=== PATIENT | female | born 1955 | race Caucasian/White ===

== ENCOUNTER 2017-07-31 19:02 | Emergency (ER) | payer MEDICAID ==
[~2017-07-31] VITALS: Ht 154.9 cm; Wt 67.5 kg
[~2017-07-31 19:02] MED LIST: ACYC200O5 PO; CYCL-319 PO; NAPR-260 PO; PRED20TA PO
[2017-07-31 19:43] VITALS: Ht 154.9 cm; Wt 67.5 kg
[2017-07-31 20:50] LABS: ADD UMIC NO; UR ASCORBIC ACID 40 mg/dL (NEGATIVE); UR BACTERIA FEW /HPF (NONE SEEN); UR BILIRUBIN (Dip) NEGATIVE (NEGATIVE); UR BLOOD (Dip) NEGATIVE (NEGATIVE); UR CLARITY SLIGHTLY CLOUDY (CLEAR); UR COLOR YELLOW (YELLOW); UR GLUCOSE (Dip) NEGATIVE (NEGATIVE); UR KETONES (Dip) NEGATIVE (NEGATIVE); UR LEUKOCYTE ESTERASE (Dip) NEGATIVE Leu/ul (NEGATIVE); UR MUCUS FEW /HPF (NONE SEEN); UR NITRITE (Dip) NEGATIVE (NEGATIVE); UR RBC 1 /HPF (0-5); UR SPECIFIC GRAVITY (Dip) 1.032 (1.003-1.030); UR TOTAL PROTEIN (Dip) NEGATIVE (NEGATIVE); UR UROBILINOGEN (Dip) NEGATIVE (NEGATIVE)
--- NOTE | 2017-07-31 21:17 | RADRPT ---
PROCEDURE: Pelvic ultrasound. CLINICAL INDICATION: Pelvic pain, history of hysterectomy. TECHNIQUE: Rod scale, color doppler, spectral doppler ultrasound of the pelvis was performed with transabdominal transducers. COMPARISON: No prior studies are available for comparison. FINDINGS: Uterus: Surgically absent. Ovaries: Not visualized by the nurse's aides teacher. IMPRESSION: No evidence of mass or fluid collections seen within the pelvis. RPTAT: AADD .Adama Castro MD, MD Date Time Electronically viewed and signed by .Adama Castro MD, MD on 07/31/2017 21:17 .B/
[2017-07-31] MEDS ORDERED: IBUP400T22 PO (21:27)
--- NOTE | 2017-07-31 21:34 | ERD ---
ER Documentation Chief Complaint Date/Time DATE: 07/31/17 TIME: 21:29 Chief Complaint L groin pain radiating to L thigh&L butt on/off x a yr, worst today HPI 31-year-old female patient with no significant past medical history presents to the ED complaining of left buttocks and left groin pain that radiates down her leg that has been intermittent for the past year but worse in the last month. Reports that she has had a history of fibroids in 2004 and had a hysterectomy during that year. Denies any chest pain, shortness of breath, abdominal pain, nausea, vomiting, diarrhea, wheezing. Denies any dysuria, urgency, frequency, hematuria, vaginal bleeding, vaginal discharge. Reports that she has been taking Aleve with slight relief of her symptoms. ROS All systems reviewed and are negative except as per history of present illness. Medications Home Meds Active Scripts Ibuprofen* (Motrin*) 400 Mg Tab, 400 MG PO Q6, #30 TAB Prov:CESAR NGUYEN PA-C 07/31/17 Cyclobenzaprine Hcl* (Cyclobenzaprine Hcl*) 10 Mg Tablet, 10 MG PO TID, #15 TAB Prov:KWAME NICE PA-C 06/05/16 Naproxen* (Naprosyn*) 500 Mg Tablet, 500 MG PO BID Y for PAIN AND/OR INFLAMMATION, #30 TAB Prov:KWAME NICE PA-C 06/05/16 Prednisone* (Prednisone*) 20 Mg Tab, 10 MG PO DAILY Y for bid, #14 TAB Prov:JEFFRY MOTTA MD 05/09/15 Prednisone* (Prednisone*) 20 Mg Tab, 20 MG PO DAILY Y for bid for 6 Days, TAB Prov:JEFFRY MOTTA MD 05/09/15 Acyclovir (Acyclovir) 200 Mg/5 Ml Oral.susp, 200 MG PO QID for 10 Days, ML Prov:JEFFRY MOTTA MD 05/09/15 Allergies Allergies: Coded Allergies: No Known Allergy (Unverified , 05/09/15) PMhx/Soc History of Surgery: Yes (HYSTERECTOMY) Anesthesia Reaction: No Hx Neurological Disorder: No Hx Respiratory Disorders: No Hx Cardiac Disorders: No Hx Psychiatric Problems: No Hx Miscellaneous Medical Probl: No Hx Alcohol Use: No Hx Substance Use: No Hx Tobacco Use: No Smoking Status: Never smoker Physical Exam Vitals Vital Signs Date Time Temp Pulse Resp B/P Pulse Ox O2 Delivery O2 Flow Rate FiO2 07/31/17 21:43 97.4 76 18 124/73 99 Room Air 07/31/17 19:43 99.0 84 18 124/82 97 Physical Exam Const: [id number], well-nourished. In no acute distress. Head: Atraumatic, normocephalic Eyes: Normal Conjunctiva without injection. No purulent discharge. ENT: Normal external ear, nose. Moist oropharynx without tonsillar exudates. Non -erythematous pharynx. Uvula midline. No drooling. No trismus. Neck: No cervical midline tenderness. Full range of motion. No meningismus. No cervical lymphadenopathy. No JVD. Resp: Clear to auscultation bilaterally. No wheezing, rhonchi, rales, or crackles. No accessory muscle use. No retractions. Cardio: Regular rate and rhythm. No murmurs, rubs or gallops. Abd: Soft, nontender, non distended. Normal bowel sounds. No palpable masses. No rebound tenderness. No guarding. Negative McBurney's point. Negative psoas sign. Negative obturator sign. : Normal external genitalia. No hernias noted. No vaginal discharge. No vaginal bleeding. Skin: No petechiae or rashes Back: No midline tenderness. No CVA tenderness.Slightly positive straight leg test of the left lower extremity. Ext: No cyanosis, or edema. Neur: Awake and alert. Normal gait. Normal coordination. Psych: Normal Mood and Affect Results 24 hrs Laboratory Tests Test 07/31/17 20:26 Urine Color YELLOW Urine Clarity SLIGHTLY CLOUDY Urine pH 5.0 Urine Specific [place] 1.032 Urine Ketones NEGATIVEmg/dL Urine Nitrite NEGATIVEmg/dL Urine Bilirubin NEGATIVEmg/dL Urine Urobilinogen NEGATIVEmg/dL Urine Leukocyte Esterase NEGATIVELeu/ul Urine Microscopic RBC 1/HPF Urine Microscopic WBC 2/HPF Urine Bacteria FEW/HPF Urine Mucus FEW/HPF Urine Hemoglobin NEGATIVEmg/dL Urine Glucose NEGATIVEmg/dL Urine Total Protein NEGATIVEmg/dl Procedures/MDM 61 [id number] female patient with no significant past medical history presents to the ED complaining of left groin pain and left buttocks pain that radiates down her leg. Patient is afebrile nontoxic. Patient has normal vital signs. Patient had a negative pelvic ultrasound. Negative urinalysis. Low suspicion for ectopic , sepsis, PID, appendicitis, ovarian torsion, tubo-ovarian abscess, surgical abdomen, or other emergent condition. Differentials include sciatica. Patient is ambulating here in the ED without difficulty. Denies saddle anesthesia, numbness or tingling, urine or bowel incontinence, weakness. Low suspicion for cauda equina syndrome, cord compression, nephrolithiasis, aortic aneurysm, aortic dissection, epidural abscess, spinal hematoma, malignancy, hernias, pyelonephritis, or other emergent conditions. Discharge medications: Ibuprofen Follow up with primary care physician in 1-2 days. Instructed patient to return to the ED sooner for any worsening symptoms. Patient's questions were answered. Patient understood and agreed with discharge plan. Patient discharged stable. Departure Diagnosis: Primary Impression: Back pain Back pain location: low back pain Chronicity: unspecified Back pain laterality: unspecified Sciatica presence: without sciatica Qualified Code: M54.5 - Low back pain without sciatica, unspecified back pain laterality, unspecified chronicity Additional Impression: Groin pain, lower left quadrant Condition: Stable Patient Instructions: Pelvic Pain, Unknown Cause, Back Pain W/ Sciatica Referrals: COMM[facility] YOU HAVE RECEIVED A MEDICAL SCREENING EXAM AND THE RESULTS INDICATE THAT YOU DO NOT HAVE A CONDITION THAT REQUIRES URGENT TREATMENT IN THE EMERGENCY DEPARTMENT. FURTHER EVALUATION AND TREATMENT OF YOUR CONDITION CAN WAIT UNTIL YOU ARE SEEN IN YOUR DOCTORS OFFICE WITHIN THE NEXT 1-2 DAYS. IT IS YOUR RESPONSIBILITY TO MAKE AN APPOINTMENT FOR FOLOW-UP CARE. IF YOU HAVE A PRIMARY DOCTOR --you should call your primary doctor and schedule an appointment IF YOU DO NOT HAVE A PRIMARY DOCTOR YOU CAN CALL OUR PHYSICIAN REFERRAL HOTLINE AT IF YOU CAN NOT AFFORD TO SEE A PHYSICIAN YOU CAN CHOSE FROM THE FOLLOWING [facility] [address] [facility] [address] [facility] [address] [facility] [address] [facility] [address] [facility]. [facility] [address] [facility]. [facility] YOU HAVE RECEIVED A MEDICAL SCREENING EXAM AND THE RESULTS INDICATE THAT YOU DO NOT HAVE A CONDITION THAT REQUIRES URGENT TREATMENT IN THE EMERGENCY DEPARTMENT. FURTHER EVALUATION AND TREATMENT OF YOUR CONDITION CAN WAIT UNTIL YOU ARE SEEN IN YOUR DOCTORS OFFICE WITHIN THE NEXT 1-2 DAYS. IT IS YOUR RESPONSIBILITY TO MAKE AN APPOINTMENT FOR FOLOW-UP CARE. IF YOU HAVE A PRIMARY DOCTOR --you should call your primary doctor and schedule and appointment IF YOU DO NOT HAVE A PRIMARY DOCTOR YOU CAN CALL OUR PHYSICIAN REFERRAL HOTLINE AT . IF YOU CAN NOT AFFORD TO SEE A PHYSICIAN YOU CAN CHOSE FROM THE FOLLOWING [facility] INSTITUTIONS: [facility] [address] [place] [address] [facility] [address] [place] [address] [facility] + [facility] [address] [place] [address] [facility] Additional Instructions: Call your primary care doctor TOMORROW for an appointment during the next 2-3 days.See the doctor sooner or return here if your condition worsens before your appointment time. CESAR NGUYEN PA-C Jul 31, 2017 21:34
[2017-07-31 21:43] VITALS: BP 124/73; PULSE 76; RESP 18; TEMP 97.4
== END 2017-07-31 21:43 | disposition home or self-care (01) ==
LOC: FTE 19:02
DX: M54.5 Low back pain (principal)
CPT/HCPCS: 76830; 76856; 81001; Z7502; 81003